=== PATIENT | female | born 2000 | race Caucasian/White ===

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

== ENCOUNTER 2018-06-12 17:41 | Outpatient (CLI) | payer OTHER ==
[2018-06-12 18:20] LABS: AMORPHOUS SEDIMENT,URINE TRACE /HPF; APPEARANCE,URINE CLOUDY; BILIRUBIN,URINE NEGATIVE (NEGATIVE); COLOR,URINE YELLOW; GLUCOSE, URINE NEGATIVE (NEGATIVE); KETONES,URINE NEGATIVE (NEGATIVE); LEUKOCYTE ESTERASE,URINE SMALL (NEGATIVE); NITRITE,URINE NEGATIVE (NEGATIVE); PROTEIN,URINE NEGATIVE (NEGATIVE); URINE SPECIFIC GRAVITY 1.021; UROBILINOGEN,URINE NEGATIVE mg/dL (<2.0)
[2018-06-12 18:42] LABS: URINE AMPHETAMINES SCREEN NEGATIVE; URINE BARBITURATES SCREEN NEGATIVE; URINE BENZODIAZEPINES SCREEN NEGATIVE; URINE COCAINE SCREEN NEGATIVE; URINE MARIJUANA (THC) SCREEN NEGATIVE; URINE METHADONE SCREEN NEGATIVE; URINE PHENCYCLIDINE SCREEN NEGATIVE
[2018-06-12] MEDS ORDERED: RINGERS SOLUTION,LACTATED 1,000 ML IV PRN (19:09)
[2018-06-12] MEDS ORDERED: HYDROXYZINE PAMOATE 50 MG CAPSULE PO ONE (19:11)
--- NOTE | 2018-06-12 20:13 | Non Stress Test Report ---
Non Stress Test Datetime Report Generated by CPN: 06/12/2018 20:13 DEMOGRAPHIC Test Number: 1 EGA NST: 33.1 INDICATION Indication for Study: Ordered by Provider MONITORING Monitor Explained: Monitor Explained; Test Explained; Patient Verbalized Understanding Time on Monitor: 06/12/2018 17:59 Time off Monitor: 06/12/2018 20:11 NST Duration: 132 NST INTERVENTIONS NST Interventions: PO Hydration; IV Fluids; Reposition Patient; Vibroacoustic Stim Physician Notified NST: Dr. Sparrow Physician Notified NST: Dr. Sparrow BABY A: [id number] BABY A Movement : Present Contraction Frequency : irritibility FHR Baseline : 130 Accelerations : 15X15 Decelerations : None Variability : Moderate 6-25bpm NST Review: Meets Criteria for Reactive NST NST Review and Verified By : Melchor Smith RN NST Results: Reactive NST REPORT Report Trigger: Send Report
== END 2018-06-12 20:52 | disposition home or self-care (01) ==
LOC: LC 17:41
PROVIDERS: ATTEND Obstetrics & Gynecology
DX: Z34.93 Encounter for supervision of normal pregnancy, unspecified, third trimester (principal)
CPT/HCPCS: 59025; 80307; 81001

== ENCOUNTER 2018-07-03 12:25 | Outpatient (CLI) | payer OTHER ==
[2018-07-03 13:16] LABS: APPEARANCE,URINE CLOUDY; BILIRUBIN,URINE NEGATIVE (NEGATIVE); COLOR,URINE AMBER; GLUCOSE, URINE NEGATIVE (NEGATIVE); KETONES,URINE NEGATIVE (NEGATIVE); LEUKOCYTE ESTERASE,URINE LARGE (NEGATIVE); NITRITE,URINE NEGATIVE (NEGATIVE); PROTEIN,URINE 100 mg/dL (NEGATIVE); URINE SPECIFIC GRAVITY 1.026
[2018-07-03 13:28] LABS: URINE COCAINE SCREEN NEGATIVE; URINE MARIJUANA (THC) SCREEN NEGATIVE; URINE METHADONE SCREEN NEGATIVE; URINE PHENCYCLIDINE SCREEN NEGATIVE
[2018-07-03 13:29] LABS: URINE BARBITURATES SCREEN NEGATIVE
[2018-07-03 13:30] LABS: URINE BENZODIAZEPINES SCREEN NEGATIVE
[2018-07-03 14:03] LABS: URINE AMPHETAMINES SCREEN NEGATIVE
--- NOTE | 2018-07-03 15:00 | Non Stress Test Report ---
Non Stress Test Datetime Report Generated by CPN: 07/03/2018 15:00 DEMOGRAPHIC EGA NST: 36.1 INDICATION Indication for Study: Ordered by Provider; Other Indication for Study (NST) Other: LABOR CHECK VITAL SIGNS Temperature - NST: 98.1 RESP - NST: 16 NBPSYS NST: 115 NBPDIA NST: 65 MONITORING Monitor Explained: Monitor Explained; Test Explained; Patient Verbalized Understanding; Other Time on Monitor: 07/03/2018 12:42 Time off Monitor: 07/03/2018 14:35 NST Duration: 113 NST INTERVENTIONS NST Interventions: PO Hydration; Reposition Patient Physician Notified NST: K. Tavarez CNM BABY A: [id number] BABY A Movement : Present Contraction Frequency : irrtability FHR Baseline : 135 Accelerations : 15X15 Decelerations : None Variability : Moderate 6-25bpm NST Review: Meets Criteria for Reactive NST NST Review and Verified By : BRIANNA NG RN NST Results: Reactive NST REPORT Report Trigger: Send Report
== END 2018-07-03 14:51 | disposition home or self-care (01) ==
LOC: LC 12:25
PROVIDERS: ATTEND Obstetrics & Gynecology Gynecology
PROC: 4A1HXCZ Monitoring of Products of Conception, Cardiac Rate, External Approach (ICD-10-PCS; principal; 2018-07-03)
DX: O23.43 Unspecified infection of urinary tract in pregnancy, third trimester (principal); Z3A.36 36 weeks gestation of pregnancy
CPT/HCPCS: 80307; 81001

== ENCOUNTER 2018-07-09 14:48 | Outpatient (CLI) | payer OTHER ==
[2018-07-09] MEDS ORDERED: ACETAMINOPHEN 325 MG TABLET PO PRN (14:54)
[2018-07-09 15:30] LABS: HEMATOCRIT 33.7 % (36.0-47.0); HEMOGLOBIN 11.7 g/dL (12.0-15.5); MEAN CORPUSCULAR HEMOGLOBIN 31.3 pg (27.0-33.4); MEAN CORPUSCULAR HGB CONC 34.8 g/dL (32.0-36.0); MEAN CORPUSCULAR VOLUME 90 fl (80-97); PLATELET COUNT 186 10^3/uL (150-450); RED BLOOD COUNT 3.74 10^6/uL (3.72-5.28); RED CELL DISTRIBUTION WIDTH 13.2 % (11.5-14.0); WHITE BLOOD COUNT 8.5 10^3/uL (4.0-10.5)
[2018-07-09 15:36] LABS: APPEARANCE,URINE CLOUDY; BILIRUBIN,URINE NEGATIVE (NEGATIVE); COLOR,URINE YELLOW; GLUCOSE, URINE NEGATIVE (NEGATIVE); KETONES,URINE NEGATIVE (NEGATIVE); LEUKOCYTE ESTERASE,URINE LARGE (NEGATIVE); NITRITE,URINE NEGATIVE (NEGATIVE); PROTEIN,URINE 30 mg/dL (NEGATIVE); URINE SPECIFIC GRAVITY 1.018; UROBILINOGEN,URINE NEGATIVE mg/dL (<2.0)
[2018-07-09 15:43] LABS: BLOOD UREA NITROGEN 4 mg/dL (7-20); CALCIUM 8.9 mg/dL (8.4-10.2); CARBON DIOXIDE 21 mmol/L (22-30); CHLORIDE 108 mmol/L (98-107); GLUCOSE 106 mg/dL (75-110); POTASSIUM 4.1 mmol/L (3.6-5.0)
[2018-07-09 15:44] LABS: ALANINE AMINOTRANSFERASE 12 U/L (9-52); ALBUMIN 3.4 g/dL (3.5-5.0); ALKALINE PHOSPHATASE 157 U/L (38-126); ANION GAP 7 (5-19); ASPARTATE AMINO TRANSFERASE 13 U/L (14-36); BILIRUBIN,DIRECT 0.2 mg/dL (0.0-0.4); BILIRUBIN,TOTAL 0.3 mg/dL (0.2-1.3); TOTAL PROTEIN 6.2 g/dL (6.3-8.2)
--- NOTE | 2018-07-09 15:52 | Non Stress Test Report ---
Non Stress Test Datetime Report Generated by CPN: 07/09/2018 15:52 DEMOGRAPHIC EGA NST: 37.0 INDICATION Indication for Study: Ordered by Provider Indication for Study (NST) Other: PRE-E W/U MONITORING Monitor Explained: Monitor Explained; Test Explained; Patient Verbalized Understanding Time on Monitor: 07/09/2018 15:05 Time off Monitor: 07/09/2018 15:32 NST Duration: 27 NST INTERVENTIONS NST Interventions: PO Hydration; Reposition Patient Physician Notified NST: N DICK, NCM REVIEWED STRIP BABY A: [id number] BABY A Movement : Present Contraction Frequency : x1 FHR Baseline : 125 Accelerations : 15X15 Decelerations : None Variability : Moderate 6-25bpm NST Review: Meets Criteria for Reactive NST NST Review and Verified By : OLGA MOSELEY Results: Reactive NST REPORT Report Trigger: Send Report
[2018-07-09 16:01] LABS: URINE AMPHETAMINES SCREEN NEGATIVE; URINE BARBITURATES SCREEN NEGATIVE; URINE BENZODIAZEPINES SCREEN NEGATIVE; URINE COCAINE SCREEN NEGATIVE; URINE MARIJUANA (THC) SCREEN NEGATIVE; URINE METHADONE SCREEN NEGATIVE; URINE PHENCYCLIDINE SCREEN NEGATIVE
[2018-07-09 16:03] LABS: UR PRO/CREAT RATIO RESULT 0.1 mg/mg (0.0-0.2); URINE CREATININE 128.8 mg/dL (16-327); URINE PROTEIN 13.1 mg/dL (<12)
== END 2018-07-09 16:36 | disposition home or self-care (01) ==
LOC: LC 14:48
PROVIDERS: ATTEND Obstetrics & Gynecology Gynecology
PROC: 4A1HXCZ Monitoring of Products of Conception, Cardiac Rate, External Approach (ICD-10-PCS; principal; 2018-07-09)
DX: O14.93 Unspecified pre-eclampsia, third trimester (principal); O47.1 False labor at or after 37 completed weeks of gestation; Z3A.37 37 weeks gestation of pregnancy
CPT/HCPCS: 36415; 59025; 80053; 80307; 81005; 82570; 83615; 84156; 84550; 85027

== ENCOUNTER 2018-07-11 23:56 | Inpatient (IN) | payer OTHER ==
[2018-07-12 00:46] LABS: APPEARANCE,URINE CLOUDY; BILIRUBIN,URINE NEGATIVE (NEGATIVE); COLOR,URINE YELLOW; GLUCOSE, URINE NEGATIVE (NEGATIVE); KETONES,URINE NEGATIVE (NEGATIVE); LEUKOCYTE ESTERASE,URINE MODERATE (NEGATIVE); NITRITE,URINE NEGATIVE (NEGATIVE); PROTEIN,URINE NEGATIVE (NEGATIVE); URINE SPECIFIC GRAVITY 1.009; UROBILINOGEN,URINE NEGATIVE mg/dL (<2.0)
[2018-07-12 01:07] LABS: URINE AMPHETAMINES SCREEN NEGATIVE; URINE BARBITURATES SCREEN NEGATIVE; URINE BENZODIAZEPINES SCREEN NEGATIVE; URINE COCAINE SCREEN NEGATIVE; URINE MARIJUANA (THC) SCREEN NEGATIVE; URINE METHADONE SCREEN NEGATIVE; URINE PHENCYCLIDINE SCREEN NEGATIVE
--- NOTE | 2018-07-12 03:26 | Admission Physical ---
Datetime Report Generated by CPN: 07/12/2018 03:25 CURRENT ADMISSION Chief Complaint: Uterine Contractions Indication for Induction: Not Applicable Admit Impression : Term, Intrauterine Admit Impression- Other: admit for observation of bp and 24 hour urine. Admit Plan: Admit to Unit ALLERGIES Medication Allergies: No Medication Allergies: No Known Allergies (07/12/2018) Latex: Latex Allergies OBSTETRICAL HISTORY EDC: 07/30/2018 00:00 : 4 Para: 1 Term: 1 : 0 SAB: 1 IAB: 1 Ectopic: 0 Livin Cesareans: 0 VBACs: 0 Multiple Births: 0 Obstetrical History Comments: G1- EAB G2- 2015 SAB G3- 2017 at 37 weeks, 6lbs 4oz male, induced for Pre-E G4- current SEE RECORDS Alcohol: No Marijuana : No Cocaine: No Other Illicit Drugs: No Cigarettes: Never Smoker. [id number] PHYSICAL EXAM General: Normal HEENT: Normal Neurologic: Normal Thyroid: Normal Heart: Normal Lungs: Normal Breast: Deferred Back: Normal Abdomen: Normal Genitourinary Exam: Normal Extremities: Normal DTRs: Normal Pelvic Type: Adequate Vital Signs: Reviewed VAGINAL EXAM Dilatation: 3 Effacement: 90 Station: -2 MEMBRANES Pooling: Negative Membranes: Intact FETUS A EGA: 37.3 Monitoring: External US FHR- Baseline: 120 Variability: Moderate 6-25bpm Decelerations: None FHR Category: Category I Presentation: Vertex Admit Comment: admit for evaluation PLANS FOR LABOR AND DELIVERY Benefit of Breast Feed Discussed: Yes INFORMED CONSENT Signature: with User ID: [email or web address]
[2018-07-12 03:37] LABS: UR PRO/CREAT RATIO RESULT 0.4 mg/mg (0.0-0.2); URINE CREATININE 54.4 mg/dL (16-327); URINE PROTEIN 20.7 mg/dL (<12)
[2018-07-12 03:56] LABS: ABSOLUTE EOSINOPHILS # (AUTO) 0.1 10^3/uL (0.0-0.6); ABSOLUTE LYMPHOCYTES (AUTO) 2.8 10^3/uL (0.5-4.7); ABSOLUTE MONOCYTES (AUTO) 0.7 10^3/uL (0.1-1.4); ABSOLUTE NEUT (AUTO) 6.4 10^3/uL (1.7-8.2); BASOPHILS % (AUTO) 0.2 % (0-2); HEMATOCRIT 33.5 % (36.0-47.0); HEMOGLOBIN 11.7 g/dL (12.0-15.5); LYMPHOCYTES % (AUTO) 27.9 % (13-45); MEAN CORPUSCULAR HEMOGLOBIN 31.6 pg (27.0-33.4); MEAN CORPUSCULAR VOLUME 90 fl (80-97); MONOCYTES % (AUTO) 6.6 % (3-13); PLATELET COUNT 187 10^3/uL (150-450); RED BLOOD COUNT 3.71 10^6/uL (3.72-5.28); RED CELL DISTRIBUTION WIDTH 13.3 % (11.5-14.0); SEGMENTED NEUTROPHILS % (AUTO) 64.3 % (42-78); TOTAL CELLS COUNTED % (AUTO) 100 %
[2018-07-12 04:20] LABS: ALANINE AMINOTRANSFERASE 7 U/L (9-52); ALBUMIN 3.4 g/dL (3.5-5.0); ALKALINE PHOSPHATASE 168 U/L (38-126); ANION GAP 8 (5-19); ASPARTATE AMINO TRANSFERASE 13 U/L (14-36); BILIRUBIN,DIRECT 0.2 mg/dL (0.0-0.4); BILIRUBIN,TOTAL 0.3 mg/dL (0.2-1.3); BLOOD UREA NITROGEN 3 mg/dL (7-20); CALCIUM 9.3 mg/dL (8.4-10.2); CARBON DIOXIDE 22 mmol/L (22-30); CHLORIDE 106 mmol/L (98-107); GLUCOSE 111 mg/dL (75-110); POTASSIUM 4.1 mmol/L (3.6-5.0); SODIUM 135.6 mmol/L (137-145); TOTAL PROTEIN 6.3 g/dL (6.3-8.2)
[2018-07-12] MEDS ORDERED: ACETAMINOPHEN 325 MG TABLET PO ONE (11:56)
[2018-07-12] MEDS ORDERED: ACETAMINOPHEN 325 MG TABLET ONE (12:12)
--- NOTE | 2018-07-12 19:34 | Non Stress Test Report ---
Non Stress Test Datetime Report Generated by CPN: 07/12/2018 19:34 DEMOGRAPHIC EGA NST: 37.3 EGA NST: 37.3 INDICATION Indication for Study: Ordered by Provider; Other Indication for Study: Ordered by Provider MONITORING Monitor Explained: Monitor Explained; Test Explained; Patient Verbalized Understanding Monitor Explained: Monitor Explained; Test Explained; Patient Verbalized Understanding Time on Monitor: 07/12/2018 19:28 Time on Monitor: 07/12/2018 17:35 Time off Monitor: 07/12/2018 18:14 NST Duration: 39 NST INTERVENTIONS NST Interventions: PO Hydration NST Interventions: PO Hydration; IV Fluids Physician Notified NST: Dr Andrews BABY A: [id number] BABY A Movement : Present Contraction Frequency : irritability FHR Baseline : 130 Accelerations : 15X15 Decelerations : None Variability : Moderate 6-25bpm NST Review: Meets Criteria for Reactive NST NST Review and Verified By : OLGA Chavez NST Results: Reactive NST REPORT Report Trigger: Send Report
[2018-07-12] MEDS ORDERED: ZOLPIDEM TARTRATE 5 MG TABLET PO ONE (20:46)
[2018-07-13 04:21] LABS: 24 HOUR URINE PROTEIN RESULT 277 mg/day (42-225); URINE PROTEIN 16.9 mg/dL (<12)
[2018-07-13 08:18] VITALS: BP 133/84
[2018-07-13] MEDS ORDERED: ACETAMINOPHEN 325 MG TABLET ONE (09:32)
[2018-07-13] MEDS ORDERED: ACETAMINOPHEN 325 MG TABLET PO ONE (09:40)
--- NOTE | 2018-07-13 10:04 | Discharge Summary ---
Discharge Summary (SDC) - Discharge Final Diagnosis: hypertension 3rd trimester Discharge Date: 07/13/18 Condition: Good Forms: Discharge POC-Adult Referrals: ARCELIA PEDERSON MD [Primary Care Provider] - Discharge Diet: As Tolerated Discharge Activity: Activity As Tolerated, Weigh Daily Home Care Assistance: None Needed Report the Following to Your Physician Immediately: Shortness of Breath, Tingling Sensation, Visual Disturbance, Weight Gain 2-3lbs a day
== END 2018-07-13 10:29 | disposition home or self-care (01) | DRG 833 ==
LOC: LC 23:56 → LR 07-12 02:50 → INTOOBSV 07-12 02:50 → OBSVTOIN 07-12 02:50 → 2N 07-12 20:25
PROVIDERS: ADMIT Obstetrics & Gynecology; ATTEND Obstetrics & Gynecology
DX: O16.3 Unspecified maternal hypertension, third trimester (principal); Z3A.37 37 weeks gestation of pregnancy
CPT/HCPCS: 80053; 80307; 81005; 82570; 83615; 84156; 85025; 86592; 86850; 86900; 86901

== ENCOUNTER 2018-07-18 06:39 | Inpatient (IN) | payer OTHER ==
[2018-07-18] MEDS ORDERED: OXYTOCIN 10 UNIT/ML VIAL ONE (07:29)
[2018-07-18] MEDS ORDERED: MISOPROSTOL 0.2 MG TABLET ONE (07:29)
[2018-07-18] MEDS ORDERED: OXYTOCIN/NORMAL SALINE 20 UNIT/1,000 ML RTUINJ ONE (07:30)
[2018-07-18] MEDS ORDERED: LIDOCAINE 1% INJ-PF (10 MG/ML) 30 ML SDV ONE (07:30)
[2018-07-18 07:46] LABS: APPEARANCE,URINE CLOUDY; BILIRUBIN,URINE NEGATIVE (NEGATIVE); COLOR,URINE YELLOW; GLUCOSE, URINE NEGATIVE (NEGATIVE); KETONES,URINE NEGATIVE (NEGATIVE); LEUKOCYTE ESTERASE,URINE LARGE (NEGATIVE); NITRITE,URINE NEGATIVE (NEGATIVE); PROTEIN,URINE NEGATIVE (NEGATIVE); URINE SPECIFIC GRAVITY 1.012; UROBILINOGEN,URINE NEGATIVE mg/dL (<2.0)
[2018-07-18 07:48] LABS: ABSOLUTE EOSINOPHILS # (AUTO) 0.1 10^3/uL (0.0-0.6); ABSOLUTE LYMPHOCYTES (AUTO) 2.4 10^3/uL (0.5-4.7); ABSOLUTE MONOCYTES (AUTO) 0.6 10^3/uL (0.1-1.4); ABSOLUTE NEUT (AUTO) 5.4 10^3/uL (1.7-8.2); BASOPHILS % (AUTO) 0.2 % (0-2); EOSINOPHILS % (AUTO) 0.8 % (0-6); HEMATOCRIT 33.4 % (36.0-47.0); HEMOGLOBIN 11.6 g/dL (12.0-15.5); LYMPHOCYTES % (AUTO) 28.8 % (13-45); MEAN CORPUSCULAR HGB CONC 34.7 g/dL (32.0-36.0); MEAN CORPUSCULAR VOLUME 89 fl (80-97); MONOCYTES % (AUTO) 6.6 % (3-13); PLATELET COUNT 170 10^3/uL (150-450); RED BLOOD COUNT 3.74 10^6/uL (3.72-5.28); RED CELL DISTRIBUTION WIDTH 13.3 % (11.5-14.0); SEGMENTED NEUTROPHILS % (AUTO) 63.6 % (42-78); TOTAL CELLS COUNTED % (AUTO) 100 %; WHITE BLOOD COUNT 8.5 10^3/uL (4.0-10.5)
[2018-07-18] MEDS ORDERED: RINGERS SOLUTION,LACTATED 300 ML IV ONE (08:05)
[2018-07-18] MEDS ORDERED: OXYTOCIN/NORMAL SALINE 20 UNIT/1,000 ML RTUINJ IV PRN ×2 (08:05→16:06)
[2018-07-18] MEDS ORDERED: RINGERS SOLUTION,LACTATED 1,000 ML IV PRN (08:05)
[2018-07-18 11:37] LABS: URINE AMPHETAMINES SCREEN NEGATIVE; URINE BARBITURATES SCREEN NEGATIVE; URINE BENZODIAZEPINES SCREEN NEGATIVE; URINE COCAINE SCREEN NEGATIVE; URINE MARIJUANA (THC) SCREEN NEGATIVE; URINE METHADONE SCREEN NEGATIVE; URINE PHENCYCLIDINE SCREEN NEGATIVE
[2018-07-18] MEDS ORDERED: EPHEDRINE SULFATE INJ 50 MG/1 ML AMPULE ONE (12:03)
[2018-07-18] MEDS ORDERED: BUPIVACAINE HCL 0.25 % INJ/PF (2.5 MG/1 ML) 30 ML VIAL ONE (12:04)
[2018-07-18] MEDS ORDERED: FENTANYL/BUPIVACAINE/NS/PF 300 MCG/150 ML RTUINJ EPI ONE (12:04)
[2018-07-18] MEDS ORDERED: PSEUDOEPHEDRINE HCL 30 MG TABLET PO PRN (16:06)
[2018-07-18] MEDS ORDERED: PROMETHAZINE HCL 25 MG TABLET PO PRN (16:06)
[2018-07-18] MEDS ORDERED: PROMETHAZINE HCL INJ 25 MG/1 ML VIAL IV PRN (16:06)
[2018-07-18] MEDS ORDERED: MEASLES,MUMPS&RUBELLA VACC/PF 0.5 ML VIAL SUBCUT PRN (16:06)
[2018-07-18] MEDS ORDERED: BENZOCAINE/MENTHOL AEROSOL SPRAY 56 ML TOP PRN (16:06)
[2018-07-18] MEDS ORDERED: GLYCERIN/WITCH HAZEL LEAF 1 EACH MED..WIPE TP PRN (16:06)
[2018-07-18] MEDS ORDERED: PROMETHAZINE HCL 25 MG SUPP.RECT PR PRN (16:06)
[2018-07-18] MEDS ORDERED: ACETAMINOPHEN 650 MG SUPP.RECT PR PRN (16:06)
[2018-07-18] MEDS ORDERED: NA PHOS,M-B/NA PHOS,DI-BA (ADULT) 133 ML ENEMA PR PRN (16:06)
[2018-07-18] MEDS ORDERED: DIBUCAINE 1% OINTMENT 56 GM TP PRN (16:06)
[2018-07-18] MEDS ORDERED: MAGNESIUM HYDROXIDE SUSP 30 ML UDCUP PO PRN (16:06)
[2018-07-18] MEDS ORDERED: DIPHENHYDRAMINE HCL 25 MG CAPSULE PO PRN (16:06)
[2018-07-18] MEDS ORDERED: ACETAMINOPHEN WITH CODEINE #3 TABLET PO PRN ×2 (16:06)
[2018-07-18] MEDS ORDERED: DIPH/PERTUSS(ACELL)/TETANUS VAC/PF 0.5 ML SYR (>=10YO) IM PRN (16:06)
--- NOTE | 2018-07-18 16:11 | Warning Signs in Babies ---
VOD Warning Signs Datetime Report Generated by [facility]: 07/18/2018 16:10 VOD#[id number] -Warning Signs in Babies: Viewed with Parent(s)/Family (06/12/2018 18:29:Vu Stein RN)
--- NOTE | 2018-07-18 16:12 | Delivery Summary ---
Del Sum A-C Datetime Report Generated by CPN: 07/18/2018 16:11 DELIVERY PERSONNEL DELIVERY PERSONNEL: [id number] Delivery Doctor:: Sahara Vyas CNM Nurse Rn Acls Certified:: Sahara Vyas CNM Labor and Delivery Nurse:: Vu Stein ems helicopter pilot Nurse:: DIOMEDES Meza Research & Insights Executive/RESEARCH NURSE: Barbara Valencia ST MATERNAL INFORMATION Delivery Anesthesia: Epidural Medications After Delivery: Pitocin Bolus-Please Comment; Pitocin Drip 20 Units/1000ml NSS Meds After Delivery Comment: 20 units pitocin bolus following placenta delivery Maternal Complications: None Provider Comments: pt progressed to c/c/1 with urge to push, began pushing and quickly delivered the head. Continued pushing, but no movement of the shoulders and then stopped pushing. On inspection, I was unable to rotate posterior arm but baby rotated on its own with the next contraction and shoulders and rest of the body easily delivered thereafter. Vigorous respiratory effort and cry with tactile stimulation. Baby placed on maternal abdomen, cord allowed to stop pulsating then clamped x2 and cut by FOB. Cord blood obtained (3vc noted). Placenta delivered spontaneously intact, fundus firm at U-2, vaginal and perineal inspection revealed abrasion as stated. Minimal bleeding and mother and baby skin to skin and bonding at this time. LABOR SUMMARY EDC: 07/30/2018 00:00 No. Babies in Womb: 1 Attempted: No Labor Anesthesia: Epidural LABOR INFORMATION Onset of Labor: 07/18/2018 07:41 Complete Dilatation: 07/18/2018 13:17 Oxytocin: Induction Group B Beta Strep: NEGATIVE Steroids Given: None Reason Steroids Not Administered: Not Applicable MEMBRANES Membranes Rupture Method: Artificial Rupture of Membranes: 07/18/2018 11:51 Length of Rupture (hr): 2.12 Amniotic Fluid Color: Clear Amniotic Fluid Amount: Moderate Amniotic Fluid Odor: Normal STAGES OF LABOR Stage 1 hr: 5 Stage 1 min: 36 Stage 2 hr: 0 Stage 2 min: 41 Stage 3 hr: 0 Stage 3 min: 8 Total Time in Labor hr: 6 Total Time in Labor min: 25 VAGINAL DELIVERY Episiotomy: None Laceration #1: None Laceration Extension #1: N/A Other Laceration: periurethral abrasion-hemostatic no repair needed Laceration Repair: Not Applicable Sponge Count Correct: N/A Sharps Count Correct: N/A CSECTION DELIVERY Primary Indication: N/A Secondary Indication: N/A CSection Urgency: n/a CSection Incidence: n/a Labor: n/a Elective: n/a CSection Incision: N/A BABY A INFORMATION Delivery Date/Time: 07/18/2018 13:58 Method of Delivery: Vaginal Born in Route : No : N/A Forceps: N/A Vacuum Extraction: N/A Shoulder Dystocia : No PRESENTATION/POSITION BABY A Presentation: Cephalic Cephalic Presentation: Vertex Vertex Position: Left Occipital Anterior Breech Presentation: N/A PLACENTA INFORMATION BABY A Placenta Delivery Time : 07/18/2018 14:06 Placenta Method of Delivery: Spontaneous Placenta Status: Delivered SCORES BABY A Heart Rate 1 min: >100 bpm Resp Effort 1 min: Good Cry Reflex Irritability 1 min: Cough or Sneeze or Pulls Away Muscle Tone 1 min: Active Motion Color 1 min: Body [place], Extremities Blue Resuscitation Effort 1 min: Tactile Stimulation SCORE 1 MIN: 9 Heart Rate 5 min: >100 bpm Resp Effort 5 min: Good Cry Reflex Irritability 5 min: Cough or Sneeze or Pulls Away Muscle Tone 5 min: Active Motion Color 5 min: Body [place], Extremities Blue Resuscitation Effort 5 min: Tactile Stimulation SCORE 5 MIN: 9 INFORMATION BABY A Gestational Age at Delivery: 38.2 Gestational Status: Early Term- 37- 38.6 Weeks Infant Outcome : Liveborn Condition : Stable Sex: Male IDENTIFICATION BABY A Verification Date/Time: 07/18/2018 14:24 ID Band Number: [id number] Mother's Name Verified: Yes Infant RN Verifying Infant: Bella Stein RN/T. Corona RN WEIGHT/LENGTH BABY A Infant Birthweight (gm): 3841 Weight (lb): 8 Infant Weight (oz): 7 Length (in): 20.50 Infant Length (cm): 52.07 CORD INFORMATION BABY A No. Cord Vessels: 3 Nuchal Cord : N/A Cord Blood Taken: Yes-For Eval (Mom's Blood Type - or O+) Suction: Mouth ASSESSMENT BABY A Infant Complications: Multiple Variable Decels Physical Findings at Delivery: Other Physical Findings- Other: see nursery notes Respirations: Appears Normal Skin to Skin: Yes Shell Grader/ALS Called : No Care By: D Bellavance RNC Transferred To: Remains with Mother BABY B INFORMATION : N/A SIGNATURES Assignment: Sarah Linder MD Signature: with User ID: Judah : with User ID: Judah
[2018-07-18] MEDS: DOCUSATE SODIUM 100 MG CAPSULE PO SCH (17:33)
[2018-07-18] MEDS: FERROUS SULFATE 325 MG TABLET PO SCH (17:33)
[2018-07-18] MEDS: IBUPROFEN 800 MG TABLET PO SCH ×2 (17:33→22:31)
[2018-07-18] MEDS: FAMOTIDINE 20 MG TABLET PO SCH (22:31)
[2018-07-19] MEDS: IBUPROFEN 800 MG TABLET PO SCH ×3 (06:58→21:48)
[2018-07-19 07:32] LABS: HEMATOCRIT 32.4 % (36.0-47.0); HEMOGLOBIN 11.2 g/dL (12.0-15.5); MEAN CORPUSCULAR HEMOGLOBIN 31.1 pg (27.0-33.4); MEAN CORPUSCULAR HGB CONC 34.6 g/dL (32.0-36.0); MEAN CORPUSCULAR VOLUME 90 fl (80-97); PLATELET COUNT 147 10^3/uL (150-450); RED BLOOD COUNT 3.61 10^6/uL (3.72-5.28); RED CELL DISTRIBUTION WIDTH 13.4 % (11.5-14.0); WHITE BLOOD COUNT 8.5 10^3/uL (4.0-10.5)
[2018-07-19] MEDS: DOCUSATE SODIUM 100 MG CAPSULE PO SCH ×2 (09:39→18:12)
[2018-07-19] MEDS: SENNOSIDES/DOCUSATE 8.6-50 MG 1 EACH TABLET PO SCH (09:39)
[2018-07-19] MEDS: FAMOTIDINE 20 MG TABLET PO SCH ×2 (09:39→21:48)
[2018-07-19] MEDS: PRENATAL VITAMIN W DHA CAPSULE PO SCH (09:39)
[2018-07-19] MEDS: FERROUS SULFATE 325 MG TABLET PO SCH ×2 (09:40→18:12)
--- NOTE | 2018-07-19 11:03 | PDOC PROGRESS REPORT ---
Subjective-OB Progress Note for:: 07/19/18 Subjective: Pt doing well, no concerns. She reports light bleeding, reg diet and is voiding well. Physical Exam (OB) Vital Signs: Temp Pulse Resp BP Pulse Ox 98.4 F 76 16 121/76 97 07/19/18 08:04 07/19/18 08:04 07/19/18 08:04 07/19/18 08:04 07/19/18 08:04 Intake & Output 07/18/18 07/19/18 07/20/18 06:59 06:59 06:59 Weight 87.7 kg - PIH/Pre-Eclampsia DTR's: 2 + Clonus: Negative Headache: Absent Epigastric Pain: No Visual Changes: No - Lochia Lochia Amount: Scant < 10 ml Lochia Color: Rubra/Red - Abdomen Description: Firm Hernia Present: No Fundal Description: Firm Fundal Height: 1/u - 2/u Objective-Diagnostic Laboratory: 07/19/18 06:47 07/19/18 06:47 WBC 8.5 RBC 3.61 L Hgb 11.2 L Hct 32.4 L MCV 90 MCH 31.1 MCHC 34.6 RDW 13.4 Plt Count 147 L Assessment and Plan(PN) - Assessment and Plan (1) Hypertension affecting in third trimester Is this a current diagnosis for this admission?: Yes (2) Vaginal delivery Is this a current diagnosis for this admission?: Yes - Time Spent with Patient Time with patient: Less than 15 minutes Medications reviewed and adjusted accordingly: Yes - Disposition Anticipated Discharge: Home Within: within 24 hours
[2018-07-20] MEDS: IBUPROFEN 800 MG TABLET PO SCH ×2 (06:04→13:32)
[2018-07-20 09:50] VITALS: BP 128/81
[2018-07-20] MEDS: FAMOTIDINE 20 MG TABLET PO SCH (09:54)
[2018-07-20] MEDS: FERROUS SULFATE 325 MG TABLET PO SCH (09:54)
[2018-07-20] MEDS: SENNOSIDES/DOCUSATE 8.6-50 MG 1 EACH TABLET PO SCH (09:54)
[2018-07-20] MEDS: PRENATAL VITAMIN W DHA CAPSULE PO SCH (09:54)
[2018-07-20] MEDS: DOCUSATE SODIUM 100 MG CAPSULE PO SCH (09:54)
--- NOTE | 2018-07-20 10:14 | PDOC DISCHARGE SUMMARY ---
Final Diagnosis Discharge Date: 07/20/18 - PP Day#2, doing well, no complaints, pt is , O+, Rubella Immune. IOL for Pre-eclampsia, Pt denies headache today - Final Diagnosis (1) Normal course Is this a current diagnosis for this admission?: Yes (2) Hypertension affecting in third trimester Is this a current diagnosis for this admission?: Yes (3) Preeclampsia Is this a current diagnosis for this admission?: Yes (4) Vaginal delivery Is this a current diagnosis for this admission?: Yes Discharge Data - Discharge Medication Prescriptions: Ibuprofen [Motrin 800 mg Tablet] 800 mg PO Q8 #60 tablet Home Medications: Pnv No.95/Ferrous Fum/Folic AC [ Formula Tablet] 1 tab PO DAILY 06/12/18 Ibuprofen [Motrin 800 mg Tablet] 800 mg PO Q8 #60 tablet 07/20/18 Reason(s) for Admission: Induction of Labor Admission Note: Pre-eclampsia Procedures: NST, Ultrasound Intrapartum Procedure(s): Spontaneous Vaginal Delivery - Diagnosis Test Laboratory: Temp Pulse Resp BP Pulse Ox 98.3 F 73 16 128/81 H 100 07/20/18 09:00 07/20/18 09:00 07/19/18 19:19 07/20/18 09:00 07/20/18 09:00 07/18/18 07/18/18 07/19/18 06:43 07:24 06:47 RBC 3.74 3.61 L Hgb 11.6 L 11.2 L Hct 33.4 L 32.4 L Urine Opiates Screen NEGATIVE - Discharge information/Instructions Discharge Activity: Activity As Tolerated, No Lifting Over 10 Pounds, Pelvic Rest Discharge Diet: As Tolerated, Regular Disposition: HOME, SELF-CARE Follow up with: [facility] in: 1, Weeks - for a BP check
--- NOTE | 2018-07-25 13:56 | Delivery Summary ---
Del Sum A-C Datetime Report Generated by CPN: 07/25/2018 13:56 DELIVERY PERSONNEL DELIVERY PERSONNEL: [id number] Delivery Doctor:: Sahara Vyas CNM Nurse Wood Furniture Assembler Certified:: Sahara Vyas CNM Labor and Delivery Nurse:: Vu Stein electrolog operator Nurse:: DIOMEDES Meza Enrober Tender/ACTUARIAL DIRECTOR: Barbara Valencia ST MATERNAL INFORMATION Delivery Anesthesia: Epidural Medications After Delivery: Pitocin Bolus-Please Comment; Pitocin Drip 20 Units/1000ml NSS Meds After Delivery Comment: 20 units pitocin bolus following placenta delivery Maternal Complications: None Provider Comments: pt progressed to c/c/1 with urge to push, began pushing and quickly delivered the head. Continued pushing, but no movement of the shoulders and then stopped pushing. On inspection, I was unable to rotate posterior arm but baby rotated on its own with the next contraction and shoulders and rest of the body easily delivered thereafter. Vigorous respiratory effort and cry with tactile stimulation. Baby placed on maternal abdomen, cord allowed to stop pulsating then clamped x2 and cut by FOB. Cord blood obtained (3vc noted). Placenta delivered spontaneously intact, fundus firm at U-2, vaginal and perineal inspection revealed abrasion as stated. Minimal bleeding and mother and baby skin to skin and bonding at this time. LABOR SUMMARY EDC: 07/30/2018 00:00 No. Babies in Womb: 1 Attempted: No Labor Anesthesia: Epidural LABOR INFORMATION Onset of Labor: 07/18/2018 07:41 Complete Dilatation: 07/18/2018 13:17 Oxytocin: Induction Group B Beta Strep: NEGATIVE Steroids Given: None Reason Steroids Not Administered: Not Applicable MEMBRANES Membranes Rupture Method: Artificial Rupture of Membranes: 07/18/2018 11:51 Length of Rupture (hr): 2.12 Amniotic Fluid Color: Clear Amniotic Fluid Amount: Moderate Amniotic Fluid Odor: Normal STAGES OF LABOR Stage 1 hr: 5 Stage 1 min: 36 Stage 2 hr: 0 Stage 2 min: 41 Stage 3 hr: 0 Stage 3 min: 8 Total Time in Labor hr: 6 Total Time in Labor min: 25 VAGINAL DELIVERY Episiotomy: None Laceration #1: None Laceration Extension #1: N/A Other Laceration: periurethral abrasion-hemostatic no repair needed Laceration Repair: Not Applicable Sponge Count Correct: N/A Sharps Count Correct: N/A CSECTION DELIVERY Primary Indication: N/A Secondary Indication: N/A CSection Urgency: n/a CSection Incidence: n/a Labor: n/a Elective: n/a CSection Incision: N/A BABY A INFORMATION Delivery Date/Time: 07/18/2018 13:58 Method of Delivery: Vaginal Method of Delivery: Vaginal Born in Route : No : N/A Forceps: N/A Vacuum Extraction: N/A Shoulder Dystocia : No PRESENTATION/POSITION BABY A Presentation: Cephalic Presentation: Cephalic Presentation: Cephalic Cephalic Presentation: Vertex Vertex Position: Left Occipital Anterior Breech Presentation: N/A PLACENTA INFORMATION BABY A Placenta Delivery Time : 07/18/2018 14:06 Placenta Method of Delivery: Spontaneous Placenta Status: Delivered SCORES BABY A Heart Rate 1 min: >100 bpm Resp Effort 1 min: Good Cry Reflex Irritability 1 min: Cough or Sneeze or Pulls Away Muscle Tone 1 min: Active Motion Color 1 min: Body [place], Extremities Blue Resuscitation Effort 1 min: Tactile Stimulation SCORE 1 MIN: 9 Heart Rate 5 min: >100 bpm Resp Effort 5 min: Good Cry Reflex Irritability 5 min: Cough or Sneeze or Pulls Away Muscle Tone 5 min: Active Motion Color 5 min: Body [place], Extremities Blue Resuscitation Effort 5 min: Tactile Stimulation SCORE 5 MIN: 9 INFORMATION BABY A Gestational Age at Delivery: 38.2 Gestational Status: Early Term- 37- 38.6 Weeks Infant Outcome : Liveborn Condition : Stable Sex: Male Infant Sex: Male IDENTIFICATION BABY A Infant Verification Date/Time: 07/18/2018 14:24 ID Band Number: [id number] Mother's Name Verified: Yes Infant RN Verifying : Bella Stein RN/TKaleb Jeter RN WEIGHT/LENGTH BABY A Birthweight (gm): 3841 Infant Weight (lb): 8 Infant Weight (oz): 7 Length (in): 20.50 Infant Length (cm): 52.07 CORD INFORMATION BABY A No. Cord Vessels: 3 Nuchal Cord : N/A Cord Blood Taken: Yes-For Eval (Mom's Blood Type - or O+) Suction: Mouth ASSESSMENT BABY A Complications: Multiple Variable Decels Physical Findings at Delivery: Other Physical Findings- Other: see nursery notes Infant Respirations: Appears Normal Skin to Skin: Yes Fruit Or Nut Farm Worker/ALS Called : No Care By: D Ernestine RNC Transferred To: Remains with Mother BABY B INFORMATION : N/A SIGNATURES Assignment: Sarah Linder MD Signature: with User ID: Judah : with User ID: [email or web address]
--- NOTE | 2018-08-21 11:28 | PDOC H&P ---
History of Present Illness Admission Date/PCP: 07/18/18 06:39 ARCELIA PEDERSON MD History of Present Illness: NHUNG CARREON is a 18 year old female presenting for scheduled induction of labor due to hypertension of Social History Information Source: Patient Smoking Status: Unknown if Ever Smoked Frequency of Alcohol Use: None Hx Recreational Drug Use: No Family History Family History: None Parental Family History Reviewed: Yes Children Family History Reviewed: Yes Sibling(s) Family History Reviewed.: Yes Medication/Allergy Home Medications: Pnv No.95/Ferrous Fum/Folic AC [ Formula Tablet] 1 tab PO DAILY 06/12/18 Ibuprofen [Motrin 800 mg Tablet] 800 mg PO Q8 #60 tablet 07/20/18 Allergies/Adverse Reactions: No Known Allergies Allergy (Verified 07/18/18 06:47) Physical Exam - Physical Exam Vital Signs: Temp Pulse Resp BP Pulse Ox 98.3 F 73 18 128/81 H 100 07/20/18 11:43 07/20/18 11:43 07/20/18 11:43 07/20/18 11:43 07/20/18 11:43 General appearance: PRESENT: no acute distress, cooperative Result Laboratory Results: 07/19/18 06:47 Assessment & Plan - Diagnosis (1) Elective induction of labor planned Is this a current diagnosis for this admission?: Yes (2) Hypertension affecting in third trimester Is this a current diagnosis for this admission?: Yes (3) Preeclampsia Qualifiers: Trimester: third trimester Qualified Code(s): O14.93 - Unspecified pre-ec lampsia, third trimester Is this a current diagnosis for this admission?: Yes - Time Time Spent: 30 to 50 Minutes Critical Time spent with patient: Less than 15 minutes Anticipated discharge: Home Within: within 72 hours - Inpatient Certification Based on my medical assessment, after consideration of the patient's comorbidities, presenting symptoms, or acuity I expect that the services needed warrant INPATIENT care.: Yes I certify that my determination is in accordance with my understanding of [facility]'s requirements for reasonable and necessary INPATIENT services [42 CFR 412.3e].: Yes Medical Necessity: Other - scheduled induction of labor
== END 2018-07-20 15:13 | disposition home or self-care (01) | DRG 807 ==
LOC: LR 06:39 → 2S 16:40
PROVIDERS: ADMIT Obstetrics & Gynecology; ATTEND Obstetrics & Gynecology
PROC: 10E0XZZ Delivery of Products of Conception, External Approach (ICD-10-PCS; principal; 2018-07-18)
DX: O14.94 Unspecified pre-eclampsia, complicating childbirth (principal); Z37.0 Single live birth; O71.82 Other specified trauma to perineum and vulva; Z3A.38 38 weeks gestation of pregnancy; O76 Abnormality in fetal heart rate and rhythm complicating labor and delivery; O99.334 Smoking (tobacco) complicating childbirth; F17.210 Nicotine dependence, cigarettes, uncomplicated
CPT/HCPCS: 36415; 80307; 81005; 85025; 85027; 86592; 86850; 86900; 86901; 94760; J2590; J3010; J3490